=== PATIENT | male | born 1990 | race African-American/Black ===

== ENCOUNTER 2020-08-15 21:17 | Emergency (ER) | payer SELFPAY ==
[~2020-08-15] VITALS: Ht 172.7 cm; Wt 93.1 kg
[~2020-08-15 21:17] MED LIST: BACTRIM DS1 TAB PO; NO; ULTRAM50 M1 PO
[2020-08-15] MEDS ORDERED: TORADOL PO (22:37)
[2020-08-16 00:10] VITALS: BP 132/78
== END 2020-08-16 00:10 | disposition home or self-care (01) | DRG 563 ==
LOC: ED 21:17
DX: S29.012A Strain of muscle and tendon of back wall of thorax, initial encounter (principal); F17.290 Nicotine dependence, other tobacco product, uncomplicated; X50.0XXA Overexertion from strenuous movement or load, initial encounter

== ENCOUNTER 2020-09-06 02:48 | Emergency (ER) | payer SELFPAY ==
[~2020-09-06] VITALS: Ht 172.7 cm; Wt 77.0 kg
[~2020-09-06 02:48] MED LIST changes: +TORADOL PO
[2020-09-06] MEDS ORDERED: PERCOCET 5/325M1 TAB PO (03:16)
[2020-09-06] MEDS ORDERED: AMOXICILLIN500 MG PO (03:16)
[2020-09-06 03:25] VITALS: BP 121/75
== END 2020-09-06 03:26 | disposition home or self-care (01) | DRG 158 ==
LOC: ED 02:48
DX: K04.7 Periapical abscess without sinus (principal); K02.9 Dental caries, unspecified; M84.48XA Pathological fracture, other site, initial encounter for fracture; F17.210 Nicotine dependence, cigarettes, uncomplicated

== ENCOUNTER 2021-06-11 21:59 | Emergency (ER) | payer SELFPAY ==
[~2021-06-11] VITALS: Ht 177.8 cm; Wt 91.0 kg
[~2021-06-11 21:59] MED LIST changes: +AMOXICILLIN500 MG PO; +PERCOCET 5/325M1 TAB PO
[2021-06-11] MEDS ORDERED: AMOXICILLIN500 M2 PO (22:37)
[2021-06-11] MEDS ORDERED: IBUPROFEN600 MG PO (22:37)
[2021-06-11 23:05] VITALS: BP 130/79
== END 2021-06-11 23:05 | disposition home or self-care (01) | DRG 153 ==
LOC: ED 21:59
DX: H66.93 Otitis media, unspecified, bilateral (principal); F17.200 Nicotine dependence, unspecified, uncomplicated

== ENCOUNTER 2021-06-18 19:12 | Emergency (ER) | payer SELFPAY ==
[~2021-06-18] VITALS: Ht 177.8 cm; Wt 90.0 kg
[~2021-06-18 19:12] MED LIST changes: +AMOXICILLIN500 M2 PO; +IBUPROFEN600 MG PO
[2021-06-18] MEDS ORDERED: TRAMADOL HCL50 MG PO (19:45)
[2021-06-18] MEDS ORDERED: AMOXICILLIN500 MG PO (19:45)
[2021-06-18] MEDS ORDERED: VOLTAREN - GENE75 MG PO (19:45)
[2021-06-18 19:51] VITALS: BP 151/89
== END 2021-06-18 19:56 | disposition home or self-care (01) | DRG 159 ==
LOC: ED 19:12
DX: K04.7 Periapical abscess without sinus (principal); K02.9 Dental caries, unspecified; F17.200 Nicotine dependence, unspecified, uncomplicated

== ENCOUNTER 2021-08-26 21:37 | Emergency (ER) | payer SELFPAY ==
[~2021-08-26] VITALS: Ht 175.3 cm; Wt 97.0 kg
[~2021-08-26 21:37] MED LIST changes: +TRAMADOL HCL50 MG PO; +VOLTAREN - GENE75 MG PO
[2021-08-26] MEDS ORDERED: VOLTAREN - GENE75 MG PO (21:53)
[2021-08-26] MEDS ORDERED: AMOXICILLIN500 MG PO (21:53)
[2021-08-26] MEDS ORDERED: TRAMADOL HCL50 MG PO (21:53)
[2021-08-26 22:10] VITALS: BP 125/79
== END 2021-08-26 22:17 | disposition home or self-care (01) | DRG 159 ==
LOC: ED 21:37
DX: K04.7 Periapical abscess without sinus (principal); K02.9 Dental caries, unspecified; F17.200 Nicotine dependence, unspecified, uncomplicated

== ENCOUNTER 2022-02-14 18:11 | Emergency (ER) | payer SELFPAY ==
[~2022-02-14] VITALS: Ht 175.3 cm; Wt 66.0 kg
[2022-02-14 18:54] VITALS: BP 121/70
[2022-02-14 19:00] VITALS: BP 131/85
[2022-02-14 19:20] VITALS: BP 131/85
== END 2022-02-14 19:20 | disposition home or self-care (01) | DRG 156 ==
LOC: ED 18:11
DX: H92.01 Otalgia, right ear (principal); F17.200 Nicotine dependence, unspecified, uncomplicated